=== PATIENT | male | born 1955 | race Caucasian/White ===

== ENCOUNTER 2017-05-10 20:30 | Emergency (ER) | payer MEDICARE, OTHER ==
[~2017-05-10] VITALS: Ht 182.9 cm; Wt 99.7 kg
[~2017-05-10 20:30] MED LIST: ASPI81TA82 PO; CLON0.5T PO; GABA300C3 PO; LEVE250 PO; LIPI40TA PO; OXCA600T PO; TAMS0.4C67 PO
[2017-05-10 20:38] VITALS: BP 186/96; PULSE 111; RESP 16; TEMP 98.3; O2SAT 97
--- NOTE | 2017-05-10 21:40 | PD ---
HPI Chief Complaint: Musculoskeletal Complaint Time Seen by Provider: 21:31 Travel History International Travel<30 days: No Contact w/Intl Traveler<30days: No Traveled to known affect area: No History of Present Illness HPI 62-year-old male presents to the emergency room for evaluation of left great toe pain after dropping a heavy object on his toe earlier today. Patient states he took his shoe off and his distal phalanx was pointing upward. He grabbed it and pulled it back in place. States there is some blood coming out of the nail. He washed it with hydroperoxide, soap, and water and came to the emergency room. Reports constant, throbbing pain in the toe. Patient has not taken anything for symptoms. Denies paresthesias. No history of diabetes. PFSH Past Medical History Blood Disorders: No Anxiety: Yes Depression: Yes Heart Rhythm Problems: No Cancer: No Cardiovascular Problems: No High Cholesterol: Yes Chest Pain: Yes Cerebrovascular Accident: No Diabetes: No Diminished Hearing: No Endocrine: No Gastrointestinal Disorders: Yes GERD: Yes Genitourinary: No Headaches: No Herniated Disk: Yes ("BULGING DISCS") Hypertension: Yes Immune Disorder: No Implanted Vascular Access Dvce: Yes Musculoskeletal: Yes Neurologic: Yes Psychiatric: No Reproductive: Yes (ERECTILE DYSFUNCTION) Respiratory: Yes (BRONCHITIS) Migraines: Yes (Followed up w/ MRI nothing found to contribute to the Migraines ) Seizures: Yes Thyroid Disease: No PNEUMOCCOCAL Vaccine (Year): 2 ?: Not Past Surgical History Abdominal Surgery: No AICD: No Body Medical Devices: METAL PLATE IN LEFT SHOULDER Cardiac Surgery: No Ear Surgery: No Endocrine Surgery: No Eye Surgery: No Genitourinary Surgery: No Gynecologic Surgery: No Joint Replacement: Yes (Left shoulder) Neurologic Surgery: No Oral Surgery: No Pacemaker: No Thoracic Surgery: No Tonsillectomy: Yes Other Surgery: Yes (CYST REMOVED FROM BACK) Family History Family Hypercholesterolemia: Yes (MOTHER) Social History Alcohol Use: No Tobacco Use: Yes Substance Use: No Allergies-Medications (Allergen,Severity, Reaction): Coded Allergies: Lamictal (Unverified Allergy, Severe, Swelling, 08/20/16) "THE 200MG DOSAGE MAKES MY THROAT SWELL UP" Metoprolol (Verified Allergy, Severe, TONGUE SWELLING, 08/20/16) Trazodone (Verified Allergy, Unknown, 08/20/16) Phenobarbital (Verified Adverse Reaction, Intermediate, "HYPER", 08/20/16) Reported Meds & Prescriptions Reported Meds & Active Scripts Active Clonazepam 0.5 Mg Tab 0.5 Mg PO TID Reported Aspir-81 (Aspirin) 81 Mg Tab 81 Mg PO DAILY Flomax (Tamsulosin HCl) 0.4 Mg Cap 0.4 Mg PO DAILY Gabapentin 300 Mg Cap 300 Mg PO BID Oxcarbazepine 600 Mg Tab 300 Mg PO TID Keppra (Levetiracetam) 250 Mg Tab 1,500 Mg PO BID Lipitor (Atorvastatin Calcium) 40 Mg Tab 40 Mg PO DAILY Review of Systems Except as stated in HPI: all other systems reviewed are Neg Physical Exam Narrative GENERAL: Well-nourished, well-developed male in no acute distress. Afebrile. Ambulatory. SKIN: Focused skin assessment warm/dry. No ecchymosis or bleeding. No open wound. There is a small line of erythema across the DIP of the left great toe. HEAD: Normocephalic. EYES: No scleral icterus. No injection or drainage. NECK: Supple, trachea midline. No JVD or lymphadenopathy. CARDIOVASCULAR: Regular rate and rhythm without murmurs, gallops, or rubs. RESPIRATORY: Breath sounds equal bilaterally. No accessory muscle use. EXTREMITY: Extreme tenderness to palpation of the distal left toe. Limited range motion of the toes secondary to pain. Less than 2 second capillary refill distally. Distal sensation intact. Moderate edema of the toe. Data Data Last Documented VS Vital Signs Date Time Temp Pulse Resp B/P Pulse Ox O2 Delivery O2 Flow Rate FiO2 05/10/17 20:38 98.3 111 16 186/96 97 Orders MDM Medical Decision Making Medical Screen Exam Complete: Yes Emergency Medical Condition: Yes Medical Record Reviewed: Yes Differential Diagnosis Fracture, sprain, strain, dislocation Narrative Course 62-year-old male presents to the emergency room for evaluation of left great toe pain after dropping a heavy object on it earlier today. Physical exam reveals mild edema of the left great toe and a 2 cm line of erythema across the DIP. Limited range of motion secondary to pain. Extreme tenderness to palpation. Less than 2 second capillary refill and distal sensation intact. X- ray was ordered but patient declined. Patient is requesting to have his toenail removed. He is persistent/insistent about this request which makes me feel as though this was his primary intention all along. He denies history of diabetes but there is a history in his EMR. Given history of diabetes and no evidence of infection or subungual hematoma, there is no indication for toenail removal emergently. He will need to follow up with the radio repairman. Patient also declined masood taping and postop shoe. Told to return for worsening symptoms. He understands and agrees to plan. Diagnosis Primary Impression: Pain of great toe Qualified Code: M79.674 - Pain of great toe, right Referrals: Expedition Supervisor Patient Instructions: General Instructions, Toe Fracture (ED) Additional Instructions: Rest and drink plenty of fluids. Take ibuprofen with food as directed, as needed for pain. Apply ice to the affected area for 20 minutes at a time, as needed for pain and swelling. Follow-up with a primary care physician. Return to the emergency room for worsening symptoms. Disposition: 01 DISCHARGE HOME Condition: Stable Agata Horn May 10, 2017 21:40
== END 2017-05-10 22:20 | disposition home or self-care (01) ==
LOC: PHEFT 20:30
DX: M79.675 Pain in left toe(s) (principal); E78.00 Pure hypercholesterolemia, unspecified; I10 Essential (primary) hypertension; Z72.0 Tobacco use
CPT/HCPCS: 99282